=== PATIENT | female | born 1975 | race Two or more races ===

== ENCOUNTER → 2018-02-20 | Outpatient (CLI) | payer OTHER | END | disposition home or self-care (01) | LOC: SONOGRAMA 10:15 | DX: L04.2 Acute lymphadenitis of upper limb (principal) ==

== ENCOUNTER 2018-04-13 11:17 | Outpatient (CLI) | payer OTHER | END 2018-04-13 11:30 | disposition home or self-care (01) | LOC: RAD 11:17 | DX: C43.61 Malignant melanoma of right upper limb, including shoulder (principal) ==

== ENCOUNTER 2018-04-27 13:37 | Outpatient (CLI) | payer OTHER | END 2018-04-27 14:59 | disposition home or self-care (01) | LOC: RAD 13:37 | DX: J90 Pleural effusion, not elsewhere classified (principal) ==

== ENCOUNTER → 2018-05-05 | Outpatient (CLI) | payer OTHER | END | disposition home or self-care (01) | LOC: RAD 13:30 | DX: J90 Pleural effusion, not elsewhere classified (principal) ==

== ENCOUNTER 2018-12-11 14:22 | Outpatient (CLI) | payer OTHER | END 2018-12-11 14:23 | disposition home or self-care (01) | LOC: RAD 14:22 | DX: C43.72 Malignant melanoma of left lower limb, including hip (principal) ==

== ENCOUNTER → 2018-12-18 18:13 | Outpatient (CLI) | payer OTHER | END | disposition home or self-care (01) | LOC: RAD 18:13 | DX: C79.51 Secondary malignant neoplasm of bone (principal) ==